=== PATIENT | male | born 1950 | race Caucasian/White ===

== ENCOUNTER → 2016-08-17 | Outpatient (CLI) | payer BC | LOC: VAS 16:43 | DX: I35.1 Nonrheumatic aortic (valve) insufficiency (principal); Z95.2 Presence of prosthetic heart valve ==

== ENCOUNTER → 2023-04-19 | Outpatient (CLI) | payer MEDICARE, BC | LOC: RAD 13:54 | DX: N23 Unspecified renal colic (principal) ==

== ENCOUNTER → 2024-02-02 | Outpatient (CLI) | payer MEDICARE, BC | LOC: RAD 10:57 | DX: R10.9 Unspecified abdominal pain (principal) ==

== ENCOUNTER 2024-03-01 16:48 | Emergency (ER) | payer MEDICARE, BC ==
[~2024-03-01] VITALS: Ht 185.4 cm; Wt 98.6 kg
[2024-03-01] MEDS ORDERED: Lidocaine/EPINEPHrine/Tetracaine Topical Gel 3 ML SYRINGE TOP ONE (17:30)
[2024-03-01 18:00] VITALS: BP 130/76
== END 2024-03-01 18:05 | disposition home or self-care (01) ==
LOC: ED 16:48
DX: S01.01XA Laceration without foreign body of scalp, initial encounter (principal); Z87.891 Personal history of nicotine dependence; X58.XXXA Exposure to other specified factors, initial encounter

== ENCOUNTER → 2024-06-05 | Outpatient (CLI) | payer MEDICARE, BC | LOC: VAS 15:01 → RAD 16:00 | DX: I08.0 Rheumatic disorders of both mitral and aortic valves (principal) ==